=== PATIENT | male | born 1990 | race Hispanic/Latino ===

== ENCOUNTER 2017-08-24 09:23 | Emergency (ER) | payer OTHER ==
--- NOTE | 2017-08-24 12:04 | Emergency Department Report ---
ED Back Pain/Injury HPI - General Chief Complaint: Back Pain/Injury Stated Complaint: LOW BACK PAIN Time Seen by Provider: 08/24/17 11:32 Source: patient, family, EMS Limitations: No Limitations - History of Present Illness Initial Comments: This is a 27-year-old male who is here presenting with back pain today. He said he injured himself at work until 05/08/2018 and he's been seen by urgent care. He said he is supposed to see orthopedic doctor in [facility]. He also said he had MRI which was done yesterday. I was able to retrieve a copy of his MRI which was faxed over by self [facility]. Patient said these have been back pain that radiated down his right leg at 8 out of 10. Better with lying down pain exacerbation walk-in. He reports that is difficult for him to walk at present due to pain. He said he was trying to get an earlier appointment with orthopedist but they are not in the clinic this week. Patient reports that he was lifting a large back and he fell. Patient is scheduled to see [facility] arthroscopically. MD Complaint: back pain, back injury, fall Onset/Timin -: days(s) Similar Symptoms Previously: Yes (since surgery) Place: work Radiation: right leg Severity: severe Severity scale (0 -10): 8 Quality: sharp, aching Consistency: constant Improves With: immobilization Worsens With: movement, walking Context: while lifting, fall Associated Symptoms: difficulty walking. denies: confusion, weakness, chest pain, numbness, cough, difficulty urinating, diaphoresis, incontinence, fever/ chills, constipation, headaches, abdominal pain, loss of appetite, malaise, nausea/vomiting, rash, seizure, shortness of breath, syncope Treatments Prior to Arrival: NSAIDS - Related Data Previous Rx's Medication Instructions Recorded Last Taken Type Acetaminophen/Codeine [Tylenol 1 tab PO Q6H PRN #12 tab 08/24/17 Unknown Rx /Codeine # 3 tab] Cyclobenzaprine [Flexeril] 10 mg PO TID PRN #21 cap 08/24/17 Unknown Rx Ibuprofen [Motrin] 600 mg PO Q8H PRN #21 tablet 08/24/17 Unknown Rx Allergies Allergy/AdvReac Type Severity Reaction Status Date / Time phenytoin sodium Allergy Seizure Verified 08/24/17 09:38 [From Dilantin] phenytoin sodium extended Allergy Seizure Verified 08/24/17 09:38 [From Dilantin] ED Review of Systems ROS: Stated complaint: LOW BACK PAIN Other details as noted in HPI Comment: All other systems reviewed and negative Constitutional: no symptoms reported Eyes: denies: eye pain, eye discharge, vision change ENT: denies: ear pain, throat pain Respiratory: no symptoms reported Cardiovascular: denies: chest pain, palpitations, dyspnea on exertion, orthopnea , edema, syncope, paroxysmal nocturnal dyspnea Gastrointestinal: denies: abdominal pain, nausea, vomiting, diarrhea, constipation, hematemesis, melena, hematochezia Genitourinary: denies: urgency, dysuria, frequency, hematuria, discharge, testicular pain, testicular mass Musculoskeletal: back pain, arthralgia. denies: joint swelling, myalgia Skin: denies: rash, change in color, change in hair/nails, pruritus, other Neurological: weakness, paresthesias. denies: headache, numbness, confusion, abnormal gait, vertigo, other ED Past Medical Hx - Past Medical History Previous Medical History?: Yes Hx Seizures: Yes - Surgical History Past Surgical History?: Yes Additional Surgical History: Left ACL - Family History Family history: no significant - Social History Smoking Status: Never Smoker Substance Use Type: None - Medications Home Medications: Home Medications Medication Instructions Recorded Confirmed Last Taken Type Acetaminophen/Codeine [Tylenol 1 tab PO Q6H PRN #12 tab 08/24/17 Unknown Rx /Codeine # 3 tab] Cyclobenzaprine [Flexeril] 10 mg PO TID PRN #21 cap 08/24/17 Unknown Rx Ibuprofen [Motrin] 600 mg PO Q8H PRN #21 tablet 08/24/17 Unknown Rx ED Physical Exam - General Limitations: No Limitations General appearance: alert, in no apparent distress - Head Head exam: Present: atraumatic, normocephalic, normal inspection, other (normal exam) - Eye Eye exam: Present: normal appearance, PERRL, EOMI. Absent: nystagmus, periorbital swelling, periorbital tenderness Pupils: Present: normal accommodation - ENT ENT exam: Present: normal exam, normal orophraynx, mucous membranes moist - Neck Neck exam: Present: normal inspection, full ROM, other (no C-spine tenderness). Absent: tenderness, meningismus, lymphadenopathy, thyromegaly - Respiratory Respiratory exam: Present: normal lung sounds bilaterally. Absent: respiratory distress, chest wall tenderness, accessory muscle use - Cardiovascular Cardiovascular Exam: Present: regular rate, normal rhythm, normal heart sounds. Absent: systolic murmur, diastolic murmur - GI/Abdominal GI/Abdominal exam: Present: soft, rigid. Absent: distended, tenderness, guarding, rebound, normal bowel sounds, organomegaly, mass, bruit, pulsatile mass, hernia - Extremities Exam Extremities exam: Present: normal inspection, full ROM, normal capillary refill , other (N, cyanosis or edema. +2 pulses in all extremities and no neurovascular compromise). Absent: tenderness, pedal edema, joint swelling, calf tenderness - Expanded Lower Extremity Exam Right Hip exam: Present: normal inspection, full ROM, pelvic stability. Absent: tenderness, swelling, abrasion, laceration, deformity, crepidus, dislocation, erythema, external rotation, internal rotation, shortening Upper Leg exam: Present: normal inspection, full ROM. Absent: tenderness, swelling, abrasion, laceration, ecchymosis, deformity, crepidus, dislocation, erythema Knee exam: Present: normal inspection, full ROM, full knee extension. Absent: tenderness, swelling, abrasion, laceration, ecchymosis, deformity, crepidus, dislocation, erythema, effusion, pain w/ pronation/supination, posterior draw sign, pain/laxity with valgus, pain/laxity with varus Lower Leg exam: Present: normal inspection, full ROM. Absent: tenderness, swelling, abrasion, laceration, ecchymosis, deformity, crepidus, dislocation, erythema, palpable cord, Mitch's sign Ankle exam: Present: normal inspection, full ROM. Absent: tenderness, swelling , abrasion, laceration, ecchymosis, deformity, crepidus, dislocation, erythema, anterior draw sign Foot/Toe exam: Present: normal inspection, full ROM. Absent: tenderness, swelling, abrasion, laceration, ecchymosis, deformity, crepidus, dislocation, erythema, amputation, puncture wound, foreign body, calcaneal tenderness, tenderness at base of 5th metatarsal, nail avulsion, subungual hematoma Neuro vascular tendon exam: Present: no vascular compromise. Absent: pulse deficit, abnormal cap refill, motor deficit, tendon deficit, extremity cold to touch, pallor, abnormal 2-point discrimination, decreased fine/light touch, foot drop, peroneal nerve deficit, significant pain with passive ROM of distal joint Gait: Positive: observed and limited by pain - Back Exam Back exam: Present: normal inspection, full ROM, other (ambulates with minimal limp. Due to back pain.). Absent: tenderness, CVA tenderness (R), CVA tenderness (L), muscle spasm, paraspinal tenderness, vertebral tenderness, rash noted - Expanded Back Exam Expanded Back exam: Absent: saddle anesthesia Back exam: Negative Straight Leg Raising: Left, Right - Neurological Exam Neurological exam: Present: alert, oriented X3, normal gait, reflexes normal. Absent: motor sensory deficit - Expanded Neurological Exam Expanded Neurological exam: Absent: innattentive, memory loss-remote event, memory loss- recent event, ataxia, receptive aphasia, expressive aphasia, total aphasia, tremor, protecting the airway Patient oriented to: Present: person, place, time Speech: Present: fluid speech Cranial nerves: EOM's Intact: Normal, Gag Reflex: Normal, Tongue Deviation: Normal, Nystagmus: Normal, Facial Sensation: Normal Cerebellar function: Romberg: Normal Upper motor neuron: Pronator Drift: Normal, Sensory Extinction: Normal Sensory exam: Upper Extremity Light Touch: Normal, Upper Extremity Temperature: Normal, UE 2 Point Discrimination: Normal, Lower Extremity Light Touch: Normal, Lower Extremity Pin Prick: Normal, LE 2 Point Discrimination: Normal Motor strength exam: RUE: 5, LUE: 5, RLE: 5, LLE: 5 DTR: bicep (R): 2+, bicep (L): 2+, tricep (R): 2+, tricep (L): 2+, knee (R): 2+ , knee (L): 2+, ankle (R): 2+, ankle (L): 2+ Best Eye Response ([place]): (4) open spontaneously Best Motor Response ([place]): (6) obeys commands Best Verbal Response ([place]): (5) oriented Jose Total: 15 - Psychiatric Psychiatric exam: Present: normal affect, normal mood - Skin Skin exam: Present: warm, dry, intact, normal color. Absent: rash ED Course Vital Signs 08/24/17 08/24/1708/24/18 09:31 12:25 13:30 Temperature 98.8 F 98.5 F Pulse Rate 16 L 74 Respiratory 16 20 18 Rate Blood Pressure 124/82 Blood Pressure 138/73 [Right] O2 Sat by Pulse 98 98 Oximetry - Reevaluation(s) Reevaluation #1: 08/24/17 13:23 Patient received Percocet 5/325 2 tablets, and Valium 10 mg by mouth, Decadron 10 mg IM Toradol 60 mg IM. Pain is relieved down to 3 at 10. Patient to ambulate status post pain medication. : ED Medical Decision Making - Medical Decision Making ED course: Patient here status post fall with low back injury and radiculopathy on 07/30/2017 at work. He has been seen by urgent care per workmen's comp and also had MRI done yesterday. MRI showing patient with age indeterminate disc bulge at L2 to L3 through L4 to L5 without any significant narrowing. Also age indeterminant central/right paracentral disc extrusion with inferior migration of L5 to S1 which contacts the right thigh nerve roots. Patient given a report of his MRI to take to his orthopedic doctor visit on 08/30/2017. He was given Percocet 5/325 2 tablets, Decadron 10 mg IM, Toradol 60 mg IM and Valium 10 mg by mouth which decreases pain 3 /10. Patient is neurologically intact and is able to ambulate after pain medication. I discussed with him that he will need to follow up with orthopedic doctor and bring disc of MRI along with MRI report with him and he might need to be followed by another specialty but that would be discussed with orthopedic and himself. Patient voiced understanding and discharged home with his family in stable condition. He exhibited no signs of Cauda Equina with physical examination. Critical care attestation.: If time is entered above; I have spent that time in minutes in the direct care of this critically ill patient, excluding procedure time. ED Disposition Clinical Impression: Bulging lumbar disc Back pain Qualifiers: Back pain location: low back pain Chronicity: acute Back pain laterality: bilateral Sciatica presence: with sciatica Sciatica laterality: sciatica of right side Qualified Code(s): M54.41 - Lumbago with sciatica, right side Disposition: -01 TO HOME OR SELFCARE Is pt being admited?: No Does the pt Need Aspirin: No Condition: Stable Instructions: Lumbar Radiculopathy (ED), Lumbar Disc Herniation (ED), Back Pain (ED) Additional Instructions: Please follow-up with your orthopedic doctor in 08/30/2017 take Medication as prescribed but please do not drive or operate heavy machinery while taking Tylenol No. 3 or Flexeril Your orthopedic doctor will give you direction on work Prescriptions: Acetaminophen/Codeine [Tylenol /Codeine # 3 tab] 1 tab PO Q6H PRN #12 tab PRN Reason: Pain, Moderate (4-6) Cyclobenzaprine [Flexeril] 10 mg PO TID PRN #21 cap PRN Reason: Muscle Spasm Ibuprofen [Motrin] 600 mg PO Q8H PRN #21 tablet PRN Reason: Pain Referrals: PRIMARY CARE,MD [Primary Care Provider] - 2-3 Days your ,orthopedic doctor [Other] - 08/31/17 Forms: Accompanied Note
[2017-08-24] MEDS ORDERED: DECADRON IM ONE (12:05)
[2017-08-24] MEDS ORDERED: TORADOL IM ONE (12:05)
[2017-08-24] MEDS ORDERED: PERCOCET 5/325 PO ONE (12:05)
[2017-08-24] MEDS ORDERED: VALIUM PO ONE (12:05)
[2017-08-24 13:31] VITALS: BP 138/73
== END 2017-08-24 14:01 | disposition home or self-care (01) ==
LOC: ED 09:23
DX: M51.9 Unspecified thoracic, thoracolumbar and lumbosacral intervertebral disc disorder (principal); M54.41 Lumbago with sciatica, right side; R26.2 Difficulty in walking, not elsewhere classified; Z88.8 Allergy status to other drugs, medicaments and biological substances
CPT/HCPCS: 96372; 99283; J1100; J1885